=== PATIENT | male | born 1980 | race African-American/Black ===

== ENCOUNTER 2020-05-27 16:34 | Emergency (ER) | payer MEDICAID ==
[~2020-05-27] VITALS: Ht 188 cm; Wt 91.0 kg
[2020-05-27] MEDS ORDERED: TERBUTALINE SULFATE 1MG/ML VIAL SUBCUT ONE (18:15)
[2020-05-27] MEDS ORDERED: LORAZEPAM 1MG TABLET PO ONE (21:15)
[2020-05-28 04:25] VITALS: BP 140/78
== END 2020-05-28 04:30 ==
LOC: ER 16:34
DX: N48.30 Priapism, unspecified (principal); F41.9 Anxiety disorder, unspecified
CPT/HCPCS: 96372; 99285; J3105

== ENCOUNTER 2021-03-02 20:16 | Emergency (ER) | payer MEDICAID, OTHER ==
[~2021-03-02] VITALS: Ht 180.3 cm; Wt 86.0 kg
[2021-03-02] MEDS ORDERED: HALOPERIDOL LACTATE 5MG/ML VIAL IM STA (22:27)
[2021-03-02] MEDS ORDERED: LORAZEPAM 2MG/ML CPJ IM STA (22:27)
[2021-03-02] MEDS ORDERED: DIPHENHYDRAMINE 50MG/ML VIAL IM STA (22:27)
[2021-03-02 22:59] LABS: CLARITY URINE CLEAR (CLEAR); COLOR URINE YELLOW (YELLOW); KETONES URINE NEGATIVE (NEGATIVE); LEUKOCYTE ESTERASE URINE NEGATIVE (NEGATIVE); NITRITE URINE NEGATIVE (NEGATIVE); OCCULT BLOOD URINE NEGATIVE (NEGATIVE); PROTEIN URINE NEGATIVE (NEGATIVE); SPECIFIC GRAVITY URINE 1.015 (1.005-1.030); UROBILINOGEN URINE 0.2 E.U./dL (0.2-1.0)
[2021-03-02 23:29] LABS: *AMPHETAMINES SCREEN URINE NEGATIVE (NEGATIVE); *BARBITURATES SCREEN URINE NEGATIVE (NEGATIVE); CANNABINOID URINE SCREEN NEGATIVE (NEGATIVE)
[2021-03-02 23:30] LABS: *BENZODIAZEPINES SCREEN URINE NEGATIVE (NEGATIVE); *COCAINE SCREEN URINE NEGATIVE (NEGATIVE); METHADONE URINE SCREEN NEGATIVE (NEGATIVE); OPIATES URINE SCREEN NEGATIVE (NEGATIVE); PHENCYCLIDINE URINE SCREEN NEGATIVE (NEGATIVE)
[2021-03-02 23:30] LABS: BASOPHILS % 0.8 % (0.0-2.0); EOSINOPHILS % 1.2 % (0.0-5.0); HEMATOCRIT. 41.3 % (42.0-52.0); HEMOGLOBIN. 14.6 g/dL (14.0-18.0); LYMPHOCYTES % 29.6 % (20.0-50.0); MEAN CORPUSCULAR HEMOGLOBIN 30.8 pg (28.0-32.0); MEAN CORPUSCULAR VOLUME 87.5 fL (80.0-94.0); MEAN PLATELET VOLUME 8.1 fl (7.4-10.4); NEUTROPHILS % 63.4 % (40.0-76.0); PLATELET 241 x1000/uL (130-400); RED BLOOD CELL COUNT 4.73 mill/uL (4.7-6.1); RED CELL DISTRIBUTION WIDTH 14.1 % (11.6-14.6)
[2021-03-02 23:37] LABS: CHLORIDE 106 mEq/L (98-107)
[2021-03-02 23:41] LABS: ETHANOL BLOOD < 10 mg/dL
[2021-03-03 04:55] VITALS: BP 126/70
== END 2021-03-03 05:08 ==
LOC: ER 20:16
DX: F23 Brief psychotic disorder (principal); R45.850 Homicidal ideations; F31.9 Bipolar disorder, unspecified; E11.9 Type 2 diabetes mellitus without complications; E78.00 Pure hypercholesterolemia, unspecified
CPT/HCPCS: 36415; 80053; 80305; 80320; 81003; 85025; 93005; 96372; 99285; J1200; J1630; J2060; G0480

== ENCOUNTER 2022-02-13 18:53 | Emergency (ER) | payer MEDICAID, OTHER ==
[~2022-02-13] VITALS: Ht 175.3 cm; Wt 87.0 kg
[2022-02-13] MEDS ORDERED: MORPHINE SULFATE 4 MG/ML CPJ (NOT FOR IM USE) IV STA (19:27)
[2022-02-13] MEDS ORDERED: PHENYLEPHRINE 50 MG in DEXT 5% WATER 245 ML IV STA ×2 (19:31→20:34)
[2022-02-13] MEDS ORDERED: LIDOCAINE HCL 1% 20ML VIAL (Pyxis) INJ INFIL ONE (19:45)
[2022-02-13 20:11] LABS: BASOPHILS % 0.7 % (0.0-2.0); EOSINOPHILS % 0.8 % (0.0-5.0); HEMATOCRIT. 44.5 % (42.0-52.0); HEMOGLOBIN. 14.9 g/dL (14.0-18.0); LYMPHOCYTES % 22.5 % (20.0-50.0); MEAN CORPUSCULAR HEMOGLOBIN 29.6 pg (28.0-32.0); MEAN CORPUSCULAR VOLUME 88.7 fL (80.0-94.0); MONOCYTES % 8.2 % (2.0-8.0); NEUTROPHILS % 67.8 % (40.0-76.0); PLATELET 207 x1000/uL (130-400); RED BLOOD CELL COUNT 5.02 mill/uL (4.7-6.1); RED CELL DISTRIBUTION WIDTH 14.3 % (11.6-14.6)
[2022-02-13 20:22] LABS: CLARITY URINE CLEAR (CLEAR); COLOR URINE YELLOW (YELLOW); KETONES URINE NEGATIVE (NEGATIVE); LEUKOCYTE ESTERASE URINE NEGATIVE (NEGATIVE); NITRITE URINE NEGATIVE (NEGATIVE); OCCULT BLOOD URINE NEGATIVE (NEGATIVE); PROTEIN URINE NEGATIVE (NEGATIVE); SPECIFIC GRAVITY URINE 1.006 (1.005-1.030); UROBILINOGEN URINE 0.2 E.U./dL (0.2-1.0)
[2022-02-13 20:29] LABS: *AMPHETAMINES SCREEN URINE NEGATIVE (NEGATIVE); *BARBITURATES SCREEN URINE NEGATIVE (NEGATIVE); *BENZODIAZEPINES SCREEN URINE NEGATIVE (NEGATIVE)
[2022-02-13 20:30] LABS: *COCAINE SCREEN URINE NEGATIVE (NEGATIVE); CANNABINOID URINE SCREEN NEGATIVE (NEGATIVE); METHADONE URINE SCREEN NEGATIVE (NEGATIVE); OPIATES URINE SCREEN NEGATIVE (NEGATIVE); PHENCYCLIDINE URINE SCREEN NEGATIVE (NEGATIVE)
[2022-02-13 21:00] LABS: CHLORIDE 104 mEq/L (98-107)
[2022-02-13 21:01] LABS: PROTHROMBIN TIME 10.7 sec (9.6-11.0)
[2022-02-13 23:38] VITALS: BP 127/84
== END 2022-02-13 23:42 | disposition short-term general hospital (02) ==
LOC: ER 18:53
DX: N48.30 Priapism, unspecified (principal); F31.9 Bipolar disorder, unspecified; E11.9 Type 2 diabetes mellitus without complications; E78.00 Pure hypercholesterolemia, unspecified; F20.9 Schizophrenia, unspecified
CPT/HCPCS: 36415; 80053; 80305; 81003; 85025; 85610; 96374; 99283; J2270; J2370; J3490; J7060

== ENCOUNTER 2023-02-04 16:28 | Emergency (ER) | payer MEDICAID, OTHER ==
[~2023-02-04] VITALS: Ht 180.3 cm; Wt 78.0 kg
[2023-02-04 16:34] VITALS: BP 138/71
[2023-02-04] MEDS ORDERED: TETANUS, DIPHTHERIA, PERTUSSIS VAC/PF 0.5ML (>10YR OLD) IM ONE (17:30)
[2023-02-04] MEDS ORDERED: BO1 TP (17:54)
[2023-02-04] MEDS ORDERED: CEPH500C2 MT (17:54)
== END 2023-02-04 18:11 | disposition home or self-care (01) ==
LOC: ER 16:28
DX: T23.022A Burn of unspecified degree of single left finger (nail) except thumb, initial encounter (principal); E11.9 Type 2 diabetes mellitus without complications; E78.00 Pure hypercholesterolemia, unspecified; F20.9 Schizophrenia, unspecified; F31.9 Bipolar disorder, unspecified; X08.8XXA Exposure to other specified smoke, fire and flames, initial encounter; Y93.89 Activity, other specified; Y92.018 Other place in single-family (private) house as the place of occurrence of the external cause
CPT/HCPCS: 73140; 90471; 90715; 99283